=== PATIENT | female | born 1955 ===

== ENCOUNTER 2016-10-08 08:18 | Emergency (ER) | payer BC ==
[2016-10-08 08:34] VITALS: BP 116/72
--- NOTE | 2016-10-08 08:44 | UC ---
Complaint Female HPI - HPI Summary HPI Summary: "I think I have a UTI." Intermittent nausea without vomiting, suprapubic pressure, urinary frequency, urinary urgency, and dysuria for three days. Left lower back pain radiation into hip and leg and "a little" vaginal itching today. Denies fever, abdominal pain, gross hematuria, or abnormal vaginal discharge/odor/pain. Last UTI greater than six months ago and states she has had an increase since having a bladder lift and hysterectomy in 2014. Patient is a client service representative. PCP Zulema. [ End ] - History Of Current Complaint Chief Complaint: UCGU Stated Complaint: URINARY Time Seen by Provider: 10/08/16 08:38 ?: No Associated Signs And Symptoms: Positive: Negative - Allergies/Home Medications Allergies/Adverse Reactions: Allergies Allergy/AdvReac Type Severity Reaction Status Date / Time No Known Allergies Allergy Verified 10/08/16 08:28 Home Medications: Home Medications Omeprazole CAP* [Prilosec CAP* 20 MG] 20 mg PO BID 10/08/16 [History Confirmed 10/08/16] PMH/Surg Hx/FS Hx/Imm Hx Previously Healthy: Yes GI/ History: Gastroesophageal Reflux - Surgical History Surgical History: Yes Surgery Procedure, Year, and Place: Bladder Lift and Hysterectomy, 2014, [place]; Exploratory Laporoscopy, 1988, [place]; Tubal Ligation, 1980, [place]; Tonsillectomy, 1960, [place] - Family History Known Family History: Positive: None - Social History Occupation: Employed Full-time Alcohol Use: Occasionally Substance Use Type: None Smoking Status (MU): Light Every Day Tobacco Smoker Type: Cigarettes Amount Used/How Often: <1 PPD Length of Time of Smoking/Using Tobacco: Since Age 12 - Immunization History Most Recent Influenza Vaccination: Not the Season Review of Systems Genitourinary: Dysuria, Urgency All Other Systems Reviewed And Are Negative: Yes Physical Exam Triage Information Reviewed: Yes Appearance: Well-Appearing, No Pain Distress, Well-Nourished Vital Signs: Initial Vital Signs Temp 98.4 F 10/08/16 08:24 Pulse 66 10/08/16 08:24 Resp 16 10/08/16 08:24 BP 116/72 10/08/16 08:24 Pulse Ox 100 10/08/16 08:24 Vital Signs Reviewed: Yes Eye Exam: Normal ENT Exam: Normal Dental Exam: Normal Neck exam: Normal Neck: Positive: 1 Respiratory Exam: Normal Cardiovascular Exam: Normal Abdominal Exam: Normal Abdomen Description: Positive: Nontender - mild suprapubic tenderness to palpation, Soft. Negative: CVA Tenderness (R), CVA Tenderness (L), Distended, Guarding Musculoskeletal Exam: Normal Neurological Exam: Normal Psychological Exam: Normal Skin Exam: Normal Complaint Female Dx - Course Course Of Treatment: use macrobid as per patient bactrim caused GI distress and she does not want to take - Differential Dx/Diagnosis Differential Diagnosis/HQI/PQRI: Ureteral Stone, Urinary Tract Infection Provider Diagnoses: UTI Discharge - Discharge Plan Condition: Good Disposition: HOME Prescriptions: Nitrofurantoin Monohyd Macro [Macrobid] 100 mg PO BID #14 cap Patient Education Materials: Urinary Tract Infection in Women (ED) Referrals: Cele Poole MD [Medical Doctor] - 7 Days
== END 2016-10-08 08:57 | disposition home or self-care (01) ==
LOC: UCCORT 08:18
DX: N39.0 Urinary tract infection, site not specified (principal); B96.20 Unspecified Escherichia coli [E. coli] as the cause of diseases classified elsewhere; Z87.440 Personal history of urinary (tract) infections; K21.9 Gastro-esophageal reflux disease without esophagitis; F17.210 Nicotine dependence, cigarettes, uncomplicated
CPT/HCPCS: 81003; 87077; 87086; 87186; 99202; G0463

== ENCOUNTER 2016-11-20 10:27 | Emergency (ER) | payer BC ==
--- NOTE | 2016-11-20 10:32 | UC ---
Back Pain HPI - HPI Summary HPI Summary: 61 year old female presents with ruq pain with referred pain to the back. - History of Current Complaint Stated Complaint: BACK/RIGHT SIDE PAIN Time Seen by Provider: 11/20/16 10:31 Hx Obtained From: Patient Onset/Duration: Lasting Hours Timing: Constant Severity Initially: Moderate Severity Currently: Moderate Pain Scale Used: 0-10 Numeric - 7 Character: Sharp - Allergies/Home Medications Allergies/Adverse Reactions: Allergies Allergy/AdvReac Type Severity Reaction Status Date / Time No Known Allergies Allergy Verified 11/20/16 10:36 Home Medications: Home Medications Ledipasvir/Sofosbuvir 90/(NF) [Harvoni 90/400 (NF)] 1 tab PO DAILY 11/20/16 [ History Confirmed 11/20/16] PMH/Surg Hx/FS Hx/Imm Hx Previously Healthy: Yes - Surgical History Surgical History: Yes Surgery Procedure, Year, and Place: Bladder Lift and Hysterectomy, 2014, [place]; Exploratory Laporoscopy, 1988, [place]; Tubal Ligation, 1980, [place]; Tonsillectomy, 1960, [place] - Family History Known Family History: Positive: None - Social History Alcohol Use: Occasionally Substance Use Type: None Smoking Status (MU): Light Every Day Tobacco Smoker Type: Cigarettes Amount Used/How Often: <1 PPD Length of Time of Smoking/Using Tobacco: Since Age 12 - Immunization History Most Recent Influenza Vaccination: Not the 2016/2017 Season Review of Systems Constitutional: Negative Skin: Negative Eyes: Negative ENT: Negative Respiratory: Negative Cardiovascular: Negative Gastrointestinal: Abdominal Pain - RUQ Genitourinary: Negative Motor: Negative Neurovascular: Negative Musculoskeletal: Negative Neurological: Negative Psychological: Negative All Other Systems Reviewed And Are Negative: Yes Physical Exam Triage Information Reviewed: Yes Vital Signs Reviewed: Yes Eye Exam: Normal ENT Exam: Normal Dental Exam: Normal Neck exam: Normal Neck: Positive: 1 Respiratory Exam: Normal Cardiovascular Exam: Normal Abdomen Description: Positive: Other: - RUQ PAIN Musculoskeletal Exam: Normal Neurological Exam: Normal Psychological Exam: Normal Skin Exam: Normal Back Pain Course/Dx - Differential Dx/Diagnosis Provider Diagnoses: RUQ PAIN Discharge - Discharge Plan Condition: Stable Disposition: HOME Patient Education Materials: Abdominal Pain (ED) Referrals: Cele Poole MD [Primary Care Provider] - Additional Instructions: PATIENT SUGGESTED TO GO TO THE ER FOR SEVERE RUQ PAIN
[2016-11-20 10:36] VITALS: BP 127/79
== END 2016-11-20 10:47 | disposition home or self-care (01) ==
LOC: UCCORT 10:27
DX: R10.11 Right upper quadrant pain (principal); F17.210 Nicotine dependence, cigarettes, uncomplicated
CPT/HCPCS: 99212; G0463